=== PATIENT | female | born 1955 | race Caucasian/White ===

== ENCOUNTER → 2018-12-17 | Outpatient (CLI) | payer MEDICARE ==
[2018-12-17 08:55] LABS: PLATELET COUNT, AUTOMATED 271 K/uL (150-450)
== END ==
LOC: LAB 07:54
PROVIDERS: ATTEND Nurse Practitioner Psychiatric/Mental Health
DX: R07.9 Chest pain, unspecified (principal)
CPT/HCPCS: 36415; 82040; 82247; 82310; 82374; 82435; 82465; 82565; 82947; 83718; 84075; 84132; 84155; 84295; 84450; 84460; 84478; 84520; 85025; 86677; 93225